=== PATIENT | female | born 2005 | race Caucasian/White ===

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

== ENCOUNTER 2025-05-04 09:38 | Emergency (ER) | payer BC, SELFPAY ==
[2025-05-04] VITALS (9 sets, daily range): BP systolic 130–134; BP diastolic 72–84; PULSE 87–97; TEMP 37.3; O2SAT 100; BMI 32.6
--- OUTSIDE RECORDS SUMMARY | 2025-05-04 10:06 | XMS_ITS | Clinical Summary ---
Author Organization [facility] Address [address], [address] [place] [address] Care Team Providers Care Ict Teacher Name Role Phone Unavailable Primary Care Provider Unavailabl e Social History Tobacco UseTypesPacks/DayYears UsedDateSmoking Tobacco: Never Assessed CommentsUnknownSex and Gender InformationValueDate RecordedSex Assigned at Not on fileLegal GqdJraclu87/12/2013 7:32 PM ESTGender IdentityNot on fileSexual OrientationNot on file Plan of Treatment Not on file Insurance
--- NOTE | 2025-05-04 10:10 | XR_ITS ---
The [address] [address] Patient Name: HAYDER DEJESUS MRN: [id number] date: 2005 Sex: F Assigned Patient Location: ER Current Patient Location: ER Accession/Order Number: [id number] Exam Date: 05/04/2025 10:50 Report Date: 05/04/2025 11:39 At the request of: GENA HUERTA MD Procedure: XR chest 1V Single view chest: CLINICAL HISTORY: cp COMPARISON: None FINDINGS: The heart is normal in size. The lungs are clear. The pulmonary vasculature is normal. Mediastinum and hilar regions are unremarkable. No pleural effusions are seen. Visualized bones are intact. XR/XR chest 1V IMPRESSION: NO ACUTE PROCESS. Impression dictated by: Moris Lyle Jr.[facility] 05/04/2025 11:39 AM Dictation Location: [facility] Electronically authenticated by: [id number] Y Date: 05/04/2025 11:39
--- NOTE | 2025-05-04 10:10 | ECG_ITS ---
The [facility] Test Date: 2025-05-04 Pat Name: HAYDER DEJESUS Department: Room: - Gender: Female Maintenance Department Technician: : 2005 Requested By: [id number] Order Number: [id number] Reading MD: DEE DONALDSON M.D. Measurements Intervals [place] Rate: 99 P: 67 GA: 128 QRS: 86 QRSD: 78 T: 43 QT: 334 QTc: 390 Interpretive Statements 1100 Sinus rhythm Normal ECG No previous ECG available for comparison Electronically Signed On 05-04-2025 20:29:40 EST by DEE DONALDSON M.D.
[2025-05-04 10:16] LABS: Hematocrit 41.8 % (36.0-48.0); Hemoglobin 13.4 g/dL (12.0-16.0); Immature Granulocytes Abs Auto 0.02 10^3/uL (0.00-0.03); Immature Granulocytes Pct Auto 0.2 % (0.0-0.5); Lymphocytes Absolute Auto 2.8 10^3/uL (1.2-3.8); Mean Corpuscular HGB Conc 32.1 g/dL (29.9-35.2); Mean Corpuscular Hemoglobin 24.5 pg (26.7-34.0); Mean Corpuscular Volume 76.3 fL (81.0-99.0); Platelet Count 429 10^3/uL (150-450); Red Blood Count 5.48 10^6/uL (4.20-5.40); White Blood Count 11.2 10^3/uL (4.0-11.0)
[2025-05-04 10:36] LABS: Alanine Aminotransferase 15 U/L (14-59); Albumin Globulin Ratio 0.7; Albumin Level 3.4 g/dL (3.4-5.0); Alkaline Phosphatase 132 U/L (46-116); Anion Gap 14.1; Aspartate Amino Transferase <5 U/L (15-37); Blood Urea Nitrogen 12.0 mg/dL (7.0-18.0); Calcium 9.5 mg/dL (8.5-10.1); Carbon Dioxide 27.8 mmol/L (21.0-32.0); Chloride 100 mmol/L (98-107); Estimated GFR (African America >60 (>=60 mL/min/1.73m^2); Estimated GFR (Non-African Ame >60 (>=60 mL/min/1.73m^2); Globulin 4.9 g/dL; Glucose 324 mg/dL (74-106); Potassium 3.9 mmol/L (3.5-5.1); Sodium 138 mmol/L (136-145); Total Protein 8.3 g/dL (6.4-8.2)
[2025-05-04] MEDS: FAMOTIDINE/PF 20 MG/2 ML VIAL IV (10:38)
[2025-05-04] MEDS: 0.9 % SODIUM CHLORIDE 1,000 ML 1000 ML IV (10:38)
[2025-05-04 10:43] LABS: Magnesium 1.7 mg/dL (1.8-2.4)
--- NOTE | 2025-05-04 10:54 | ED.CHESTPAI1 ---
HPI - Chest Pain General Chief Complaint: Chest Pain Stated Complaint: CHEST PAIN CAN;T FEEL RT LEG DIABETES CONCERN Time Seen by Provider: 05/04/25 10:05 Source: patient Mode of arrival: walk-in Limitations: no limitations History of Present Illness HPI narrative: Patient is a 19-year-old female who is supposed to be on insulin for diabetes control type II, does not take her medication coming to the ER with a upper chest pain that is mostly burning-like associated with feeling that she is having dry mouth, and some tingling in her right leg Denies any other symptoms the pain has been going on for the last few days which is burning-like and that she is pointing to the area just below the neck No cough no fever no other concerns Related Data Home Medications ?Medication ?Instructions ?Recorded ?Confirmed dextroamphetamine-amphetamine ER 20 mg PO DAILY 09/11/23 05/04/25 20 mg 24hr capsule,extend release aripiprazole 10 mg tablet (Abilify) 10 mg PO DAILY 05/04/25 05/04/25 insulin lispro 100 unit/mL 1 sliding scale dose subcut 05/04/25 05/04/25 subcutaneous solution (Admelog USEASDIRECTD U-100 Insulin lispro) metformin 500 mg 24 hr 500 mg PO BID 05/04/25 05/04/25 tablet,extended release (gastric retention) (Glumetza) Previous Rx's ?Medication ?Instructions ?Recorded famotidine 20 mg tablet (Pepcid) 20 mg PO BID #10 tabs 05/04/25 Allergies Allergy/AdvReac Type Severity Reaction Status Date / Time amoxicillin Allergy Intermediate Hives Verified 05/04/25 09:45 Review of Systems ROS Status of ROS 10 or more systems reviewed and unremarkable except as noted in history and below [facility] Social History Little interest or pleasure in doing things: not at all Feeling down, depressed, or hopeless: not at all Exam Narrative Exam Narrative: Nurses notes and vital signs reviewed and patient is not hypoxic. General: Well-appearing and in no apparent distress. Skin: Warm, dry, no pallor noted. No rash. Head: Normocephalic, atraumatic. Neck: Supple, non-tender. Eye: Pupils are equal, round and EOMI. No scleral icterus. Ears, Nose, Mouth, and Throat: Mucous membranes no fungal lesions Cardiovascular: Regular Rate and Rhythm without murmur, gallop or rub. Respiratory: No accessory muscle use or respiratory distress. Lungs are clear to auscultation, no wheezing, rales or rhonchi Chest Wall: no tenderness Back: No midline thoracic or lumbar vertebral tenderness. No CVA tenderness Musculoskeletal: normal ROM, no calf or popliteal tenderness, no lower extremity edema/swelling GI: Abdomen is soft, non-distended. Normal bowel sounds. No masses appreciated. No tenderness to palpation. No rebound, guarding, or rigidity noted. Neurological: A&O x4. No cranial nerve dysfunction observed. No truncal ataxia. Moves all extremities. Sensation intact. Psychiatric: Cooperative and interactive. Normal mood and affect. Constitutional Vital Signs, click to edit/add: Last Vital Signs Temp 99.1 F 05/04/25 09:45 Pulse 87 05/04/25 12:00 Resp 22 H 05/04/25 12:00 BP 134/72 05/04/25 11:58 Pulse Ox 100 05/04/25 09:45 O2 Del Method Room Air 05/04/25 09:45 Course Vital Signs Vital signs: Vital Signs Blood Pressure 130/84 05/04/25 09:44 Temperature 99.1 F 05/04/25 09:45 Pulse Rate 87 05/04/25 12:00 Respiratory Rate 22 H 05/04/25 12:00 Blood Pressure 134/72 05/04/25 11:58 Pulse Oximetry 100 05/04/25 09:45 Oxygen Delivery Method Room Air 05/04/25 09:45 MDM - Chest Pain MDM Narrative Medical decision making narrative: Patient x-ray chest showed no acute pathology the patient EKG showing sinus rhythm with a heart rate of [address] elevation or depression CBC and chemistry showed elevated blood sugar with no anion gap it was 375 that responded initially to IV fluid with normal saline and it was around 200 The patient also had a magnesium of 1.7 with no EKG changes that correlate with hypomagnesemia Patient was provided with IV fluid as well as p.o. magnesium instructed about replating her magnesium with high magnesium diet at home in addition to the importance of taking her medication Did explain to her that being diabetic she need to start taking medication otherwise she will have further complication from diabetes including blindness and kidney disease The patient understand that she was provided with 1 dose of insulin mostly Humalog 4 units she does have her medication at home and she takes insulin sliding scale as well as metformin but she has not been taking any of her medication for the last few days and she also have the medication at home and does not need any refill The patient to follow-up with the primary care within 2 to 3 days and to come back to the ER in case of any worsening of the current symptoms or any new symptoms or concerns Lab Data Labs: Lab Results 05/04/25 05/04/25 05/04/25 Range/Units 10:03 10:43 11:39 WBC 11.2 H (4.0-11.0) 10^3/uL RBC 5.48 H (4.20-5.40) 10^6/uL Hgb 13.4 (12.0-16.0) g/dL Hct 41.8 (36.0-48.0) % MCV 76.3 L (81.0-99.0) fL MCH 24.5 L (26.7-34.0) pg MCHC 32.1 (29.9-35.2) g/dL RDW 13.0 (11.0-15.0) % Plt Count 429 (150-450) 10^3/uL MPV 9.4 L (9.5-13.5) fL Neut % (Auto) 70.0 (43.0-75.0) % Lymph % (Auto) 24.7 (20.5-60.0) % [place] % (Auto) 3.6 (1.7-12.0) % Eos % (Auto) 1.0 (0.9-7.0) % Baso % (Auto) 0.5 (0.2-2.0) % Neut # (Auto) 7.8 H (1.4-6.5) 10^3/uL Lymph # (Auto) 2.8 (1.2-3.8) 10^3/uL [place] # (Auto) 0.4 (0.3-0.8) 10^3/uL Eos # (Auto) 0.1 (0.0-0.7) 10^3/uL Baso # (Auto) 0.1 (0.0-0.1) 10^3/uL Abs Immat Gran (auto) 0.02 (0.00-0.03) 10^3/uL Imm/Tot Granulo (auto) 0.2 (0.0-0.5) % Sodium 138 (136-145) mmol/L Potassium 3.9 (3.5-5.1) mmol/L Chloride 100 (98-107) mmol/L Carbon Dioxide 27.8 (21.0-32.0) mmol/L Anion Gap 14.1 BUN 12.0 (7.0-18.0) mg/dL Creatinine 0.64 (0.55-1.02) mg/dL Est GFR ( Amer) >60 (>=60 mL/min/1.73m^2) Est GFR (Non-Af Amer) >60 (>=60 mL/min/1.73m^2) BUN/Creatinine Ratio 18.8 Glucose 324 H (74-106) mg/dL Calcium 9.5 (8.5-10.1) mg/dL Phosphorus 3.7 (2.6-4.7) mg/dL Magnesium 1.7 L (1.8-2.4) mg/dL Total Bilirubin 0.2 (0.2-1.0) mg/dL AST <5 L (15-37) U/L ALT 15 (14-59) U/L Alkaline Phosphatase 132 H (46-116) U/L Total Protein 8.3 H (6.4-8.2) g/dL Albumin 3.4 (3.4-5.0) g/dL Globulin 4.9 g/dL Albumin/Globulin Ratio 0.7 Serum HCG, Qual Negative (NEGATIVE) Urine Color Lt. yellow (YELLOW) Urine Clarity Sl cloudy (CLEAR) Urine pH 6.0 (5.0-9.0) Ur Specific [place] 1.020 (1.005-1.025) Urine Protein Negative (NEG/TRACE) mg/dL Urine Glucose (UA) 500 A (NEGATIVE) mg/dL Urine Ketones >=80 A (NEGATIVE) mg/dL Urine Occult Blood Negative (NEGATIVE) Urine Nitrite Negative (NEGATIVE) Urine Bilirubin Negative (NEGATIVE) Urine Urobilinogen 0.2 (0.2-1.0) EU/dL Ur Leukocyte Esterase Negative (NEGATIVE) Urine Opiates Screen Negative (NEGATIVE) Ur Buprenorphine Scrn Negative (NEGATIVE) Ur Oxycodone Screen Negative (NEGATIVE) Urine Methadone Screen Negative (NEGATIVE) Ur Barbiturates Screen Negative (NEGATIVE) U Tricyclic Antidepress Negative (NEGATIVE) Ur Phencyclidine Scrn Negative (NEGATIVE) Ur Amphetamines Screen Negative (NEGATIVE) U Methamphetamines Scrn Negative (NEGATIVE) U Benzodiazepines Scrn Negative (NEGATIVE) Urine Cocaine Screen Negative (NEGATIVE) U Cannabinoids Screen Negative (NEGATIVE) Acetone, Qual Negative (NEGATIVE) POC Glucose 262 H (74-106) mg/dL Discharge Plan Discharge Chief Complaint: Chest Pain Clinical Impression: Acute hyperglycemia, Atypical chest pain, Hypomagnesemia Patient Disposition: Home, Self-Care Time of Disposition Decision: 11:43 Condition: Good Prescriptions / Home Meds: New famotidine [Pepcid] 20 mg tablet 20 mg PO BID Qty: 10 0RF No Action dextroamphetamine-amphetamine 20 mg capsule,extended release 24hr 20 mg PO DAILY aripiprazole [Abilify] 10 mg tablet 10 mg PO DAILY metformin [Glumetza] 500 mg tablet,ER paola.retention 24 hr 500 mg PO BID insulin lispro [Admelog U-100 Insulin lispro] 100 unit/mL solution 1 sliding scale dose subcut USEASDIRECTD Print Language: Uzbek Instructions: Hypomagnesemia (ED), Noncardiac Chest Pain (ED), Diabetic Hyperglycemia (ED) Referrals: VALENTÍN CONCEPCION [Primary Care Provider, [facility]] - 1 week Discharge Date/Time: 05/04/25 12:03
[2025-05-04 10:55] LABS: Glucose Urine UA 500 mg/dL (NEGATIVE)
[2025-05-04 11:14] LABS: Cannabinoid Screen Urine NEGATIVE (NEGATIVE); Methamphetamines Screen Urine NEGATIVE (NEGATIVE); Tricyclic Antidepressant Urine NEGATIVE (NEGATIVE)
[2025-05-04] MEDS: MAGNESIUM OXIDE 400 MG TABLET PO (11:15)
[2025-05-04] MEDS: INSULIN ASPART 300 UNIT/3 ML PEN SUBQ (11:54)
== END 2025-05-04 12:03 | disposition home or self-care (01) ==
PROVIDERS: Emergency Provider Emergency Medicine; PCP Family Medicine
DX: R07.89 Other chest pain (principal); E11.65 Type 2 diabetes mellitus with hyperglycemia; E83.42 Hypomagnesemia; Z79.4 Long term (current) use of insulin; Z79.84 Long term (current) use of oral hypoglycemic drugs
CPT/HCPCS: 36415; 71045; 80053; 80307; 81003; 82009; 83735; 84100; 84703; 85025; 93005; 96374; 99284; 99285; J3490